=== PATIENT | male | born 1940 | race Caucasian/White ===

== ENCOUNTER → 2016-08-29 | Outpatient (CLI) | payer MEDICARE, MEDICAID | END | disposition home or self-care (01) | LOC: Rad HDHVI 13:37 | PROVIDERS: ATTEND Internal Medicine Cardiovascular Disease | DX: Z95.5 Presence of coronary angioplasty implant and graft (principal); R42 Dizziness and giddiness | CPT/HCPCS: 93306 ==

== ENCOUNTER → 2016-09-15 | Outpatient (CLI) | payer MEDICARE, MEDICAID ==
[~2016-09-15] VITALS: Ht 182.9 cm; Wt 61.2 kg
[~2016-09-15] MED LIST: ADENOSINE 51 MG in GIVE UN-DILUTED 0 ML IV ONE; ADENOSINE 90 MG/30 ML INJ IV ONE
[2016-09-15 12:18] LABS: Basophils # (auto) 0 uL; Basophils % (auto) 0.5 % (0.0-2.0); Eosinophils # (auto) 0.1 uL; Hematocrit 39.4 % (41.0-53.0); Hemoglobin 13.6 g/dL (13.5-17.5); Lymphocytes # (auto) 1.7 uL; Lymphocytes % (auto) 24.6 % (10.0-50.0); Mean Corpuscular Hemoglobin 32.8 pg (28.0-32.0); Mean Corpuscular Hgb Conc. 34.7 g/dL (32.0-36.0); Mean Corpuscular Volume 94.5 fL (80.0-100.0); Mean Platelet Volume 9.4 fL (7.4-10.4); Monocytes # (auto) 0.6 uL; Monocytes % (auto) 9.3 % (0.0-12.0); Neutrophils # (auto) 4.5 uL; Neutrophils % (auto) 64.6 % (37.0-80.0); Platelet Count (auto) 300 10^3/uL (140-450); Red Cell Distribution Width 14.8 % (11.6-16.0)
[2016-09-15 13:04] LABS: Potassium 3.7 mmol/L (3.5-5.1)
[2016-09-15 13:05] LABS: Albumin 4.1 g/dL (3.4-5.0); Bilirubin, Total 0.8 mg/dL (0.2-1.0); Calcium 10.5 mg/dL (8.5-10.1); Total Protein 9.4 g/dL (6.4-8.2)
[2016-09-15 13:19] LABS: Bilirubin, Direct 0.4 mg/dL (0-0.2)
== END | disposition home or self-care (01) ==
LOC: Rad HDHVI 08:27
PROVIDERS: ATTEND Internal Medicine Cardiovascular Disease
DX: I10 Essential (primary) hypertension (principal); E78.00 Pure hypercholesterolemia, unspecified; K74.1 Hepatic sclerosis; E11.9 Type 2 diabetes mellitus without complications; R97.20 Elevated prostate specific antigen [PSA]; R53.81 Other malaise; E03.9 Hypothyroidism, unspecified; D64.9 Anemia, unspecified; E55.9 Vitamin D deficiency, unspecified
CPT/HCPCS: 36415; 78452; 80048; 80061; 80076; 82306; 83036; 84153; 84403; 84443; 85025; 93005; 96374; 96375; J0153